=== PATIENT | male | born 1980 | race Two or more races ===

== ENCOUNTER 2020-01-21 02:07 | Emergency (ER) | payer SELFPAY ==
[~2020-01-21] VITALS: Ht 172.7 cm; Wt 79.0 kg
[2020-01-21] MEDS ORDERED: ONDANSETRON HCL 4MG/2ML INJ IV STA (02:39)
[2020-01-21] MEDS ORDERED: MIDAZOLAM HCL 2 MG/2 ML VIAL IV ONE (02:45)
[2020-01-21] MEDS ORDERED: FENTANYL CITRATE/PF 50MCG/ML 2ML VIAL IV ONE (02:45)
[2020-01-21] MEDS ORDERED: SODIUM CHLORIDE 0.9% 1,000 ML IV ONE (02:45)
[2020-01-21] MEDS ORDERED: BACITRACIN 15GM TUBE TOP ONE (02:45)
[2020-01-21] MEDS ORDERED: TETANUS, DIPHTHERIA, PERTUSSIS VAC/PF 0.5ML (>7YR OLD) IM ONE (02:45)
[2020-01-21 02:56] LABS: BASOPHILS % 0.5 % (0.0-2.0); EOSINOPHILS % 0.5 % (0.0-5.0); HEMATOCRIT. 41.3 % (42.0-52.0); HEMOGLOBIN. 14.2 g/dL (14.0-18.0); LYMPHOCYTES % 17.4 % (20.0-50.0); MEAN CORPUSCULAR HEMOGLOBIN 29.9 pg (28.0-32.0); MEAN CORPUSCULAR VOLUME 87.1 fL (80.0-94.0); MEAN PLATELET VOLUME 6.4 fl (7.4-10.4); MONOCYTES % 6.3 % (2.0-8.0); NEUTROPHILS % 75.3 % (40.0-76.0); PLATELET 303 x1000/uL (130-400); RED BLOOD CELL COUNT 4.74 mill/uL (4.7-6.1); RED CELL DISTRIBUTION WIDTH 13.3 % (11.6-14.6)
[2020-01-21 03:05] LABS: CHLORIDE 106 mEq/L (98-107)
[2020-01-21] MEDS ORDERED: BACITRACIN ZINC OINT UDPKT TOP SCH (03:45)
[2020-01-21 07:12] VITALS: BP 128/91
== END 2020-01-21 08:51 | disposition home or self-care (01) ==
LOC: ER 02:07
DX: T24.111A Burn of first degree of right thigh, initial encounter (principal); T31.0 Burns involving less than 10% of body surface; X11.8XXA Contact with other hot tap-water, initial encounter; Y93.89 Activity, other specified; Y92.89 Other specified places as the place of occurrence of the external cause; Y99.8 Other external cause status; F17.290 Nicotine dependence, other tobacco product, uncomplicated; F15.10 Other stimulant abuse, uncomplicated
CPT/HCPCS: 16000; 36415; 80048; 85025; 90471; 90715; 96361; 96374; 96375; 99284; J2250; J2405; J3010; J7030

== ENCOUNTER 2020-08-12 00:43 | Emergency (ER) | payer MEDICAID ==
[~2020-08-12] VITALS: Ht 175.3 cm; Wt 82.0 kg
[2020-08-12 01:25] VITALS: BP 147/95
[2020-08-12] MEDS ORDERED: CEFTRIAXONE SODIUM 1 G/VIAL IM ONE (01:30)
[2020-08-12] MEDS ORDERED: TETANUS, DIPHTHERIA, PERTUSSIS VAC/PF 0.5ML (>7YR OLD) IM ONE (01:30)
[2020-08-12] MEDS ORDERED: IBUPROFEN 800MG TABLET PO ONE (01:30)
[2020-08-12] MEDS ORDERED: SULF1TAB48 MT (01:41)
[2020-08-12] MEDS ORDERED: CEPH500T MT (01:41)
[2020-08-12] MEDS ORDERED: IBUP-2029 MT (01:41)
== END 2020-08-12 02:52 | disposition home or self-care (01) ==
LOC: ER 00:43
DX: L02.416 Cutaneous abscess of left lower limb (principal); F15.10 Other stimulant abuse, uncomplicated
CPT/HCPCS: 90471; 90715; 96372; 99284; J0696

== ENCOUNTER 2023-07-27 18:12 | Emergency (ER) | payer MEDICAID, OTHER ==
[~2023-07-27] VITALS: Ht 170.2 cm; Wt 68.0 kg
[~2023-07-27 18:12] MED LIST: CEPH500T MT; IBUP-2029 MT; SULF1TAB48 MT
[2023-07-27 18:15] VITALS: TEMP 98.6; O2SAT 98
[2023-07-27] MEDS ORDERED: IBUPROFEN 400MG TABLET PO ONE (19:15)
[2023-07-27] MEDS ORDERED: ACETAMINOPHEN 325MG TABLET PO ONE (19:15)
[2023-07-27] MEDS ORDERED: ONDANSETRON 4MG ODT PO ONE (19:15)
[2023-07-27 20:19] LABS: CARBON DIOXIDE 27 mEq/L (21-32); CHLORIDE 102 mEq/L (98-107); POTASSIUM 4.3 mEq/L (3.5-5.1); SODIUM 132 mEq/L (136-145)
[2023-07-27 20:20] LABS: CALCIUM 9.1 mg/dL (8.7-10.4)
[2023-07-27 20:21] LABS: BASOPHILS % 0.4 % (0.0-2.0); EOSINOPHILS % 0.1 % (0.0-5.0); HEMATOCRIT. 45.7 % (42.0-52.0); HEMOGLOBIN. 16.2 g/dL (14.0-18.0); LYMPHOCYTES % 25.2 % (20.0-50.0); MEAN CORPUSCULAR HGB CONC 35.4 g/dL (31.0-37.0); MEAN CORPUSCULAR VOLUME 90.5 fL (80.0-94.0); MEAN PLATELET VOLUME 7.2 fl (7.4-10.4); MONOCYTES % 8.8 % (2.0-8.0); NEUTROPHILS % 65.5 % (40.0-76.0); PLATELET 227 x1000/uL (130-400); RED BLOOD CELL COUNT 5.05 mill/uL (4.7-6.1); RED CELL DISTRIBUTION WIDTH 13.9 % (11.6-14.6); WHITE BLOOD COUNT 5.6 x1000/uL (4.5-11.0)
[2023-07-27 20:25] LABS: GLUCOSE 90 mg/dL (70-105); UREA NITROGEN BLOOD 10 mg/dL (9-23)
[2023-07-27 20:26] LABS: ALANINE AMINOTRANSFERASE 33 IU/L (10-49); ALBUMIN 4.2 g/dL (3.2-4.8); ASPARTATE AMINOTRANSFERASE 48 IU/L (<34)
[2023-07-27 20:27] LABS: BILIRUBIN DIRECT 0.2 mg/dL (<=3.0); BILIRUBIN TOTAL 0.6 mg/dL (0.1-1.0); PROTEIN TOTAL 7.4 g/dL (6.0-8.3)
[2023-07-27 20:46] LABS: ETHANOL BLOOD < 10 mg/dL (<10)
[2023-07-27] MEDS: ONDANSETRON 4MG ODT PO NR (21:20)
[2023-07-27] MEDS: IBUPROFEN 400MG TABLET PO NR (21:25)
[2023-07-27] MEDS: ACETAMINOPHEN 325MG TABLET PO NR (21:25)
[2023-07-27] MEDS ORDERED: IBUP-2028 MT (22:19)
[2023-07-27] MEDS ORDERED: TOPUD PO (22:19)
[2023-07-27] MEDS ORDERED: AZIT250T12 MT (22:19)
[2023-07-27 22:30] LABS: CLARITY URINE CLEAR (CLEAR); COLOR URINE DARK YELLOW (YELLOW); GLUCOSE URINE NEGATIVE (NEGATIVE); KETONES URINE TRACE (NEGATIVE); LEUKOCYTE ESTERASE URINE NEGATIVE (NEGATIVE); NITRITE URINE NEGATIVE (NEGATIVE); OCCULT BLOOD URINE NEGATIVE (NEGATIVE); PH URINE 5.5 (4.5-8.0); PROTEIN URINE TRACE (NEGATIVE); SPECIFIC GRAVITY URINE 1.032 (1.005-1.030)
[2023-07-27 22:40] LABS: *AMPHETAMINES SCREEN URINE PRESUMPTIVE POSITIVE (NEGATIVE); *BARBITURATES SCREEN URINE NEGATIVE (NEGATIVE); *BENZODIAZEPINES SCREEN URINE NEGATIVE (NEGATIVE); *COCAINE SCREEN URINE NEGATIVE (NEGATIVE); CANNABINOID URINE SCREEN NEGATIVE (NEGATIVE); ECSTASY MDMA SCREEN URINE CONF.TEST INDICATED (NEGATIVE); METHADONE URINE SCREEN NEGATIVE (NEGATIVE); OPIATES URINE SCREEN NEGATIVE (NEGATIVE); PHENCYCLIDINE URINE SCREEN NEGATIVE (NEGATIVE)
[2023-07-27 22:44] LABS: BACTERIA URINE 1+; RBC URINE 0-2 /hpf (0-2); SQUAMOUS EPITHELIAL CELL URINE 1+ /lpf (RARE/1+); WBC URINE 0-2 /hpf (0-2)
[2023-07-27 23:02] VITALS: BP 99/70; PULSE 101; RESP 14
== END 2023-07-27 23:03 | disposition home or self-care (01) ==
LOC: ER 18:12
DX: J06.9 Acute upper respiratory infection, unspecified (principal); F15.90 Other stimulant use, unspecified, uncomplicated; F17.200 Nicotine dependence, unspecified, uncomplicated
CPT/HCPCS: 36415; 71045; 80048; 80076; 80305; 80320; 81003; 85025; 99284; Q0162; G0480